=== PATIENT | male | born 1995 | race Caucasian/White ===

== ENCOUNTER → 2019-11-27 13:50 | Outpatient (BNVA) | payer MEDICAID, SELFPAY | PROVIDERS: Family Provider Internal Medicine; PCP Internal Medicine; Visit Provider Nurse Practitioner Psychiatric/Mental Health | DX: F63.81 Intermittent explosive disorder (principal); F41.1 Generalized anxiety disorder; F70 Mild intellectual disabilities; Z72.0 Tobacco use | CPT/HCPCS: 99213 ==

== ENCOUNTER → 2020-02-25 08:32 | Outpatient (BNVA) | payer MEDICAID, SELFPAY | PROVIDERS: Family Provider Internal Medicine; PCP Internal Medicine; Visit Provider Nurse Practitioner Psychiatric/Mental Health | DX: F63.81 Intermittent explosive disorder (principal); F41.1 Generalized anxiety disorder; F70 Mild intellectual disabilities; Z72.0 Tobacco use | CPT/HCPCS: 99213 ==

== ENCOUNTER → 2020-05-19 08:24 | Outpatient (BNVA) | payer MEDICAID, SELFPAY | PROVIDERS: Family Provider Internal Medicine; PCP Internal Medicine; Visit Provider Nurse Practitioner Psychiatric/Mental Health | DX: F63.81 Intermittent explosive disorder (principal); F41.1 Generalized anxiety disorder; F70 Mild intellectual disabilities; F17.220 Nicotine dependence, chewing tobacco, uncomplicated | CPT/HCPCS: 99214 ==

== ENCOUNTER → 2020-06-17 07:32 | Outpatient (BNVA) | payer MEDICAID, SELFPAY | PROVIDERS: Family Provider Internal Medicine; PCP Internal Medicine; Visit Provider Nurse Practitioner Psychiatric/Mental Health | DX: F63.81 Intermittent explosive disorder (principal); F41.1 Generalized anxiety disorder; F70 Mild intellectual disabilities; F17.220 Nicotine dependence, chewing tobacco, uncomplicated; F33.1 Major depressive disorder, recurrent, moderate | CPT/HCPCS: 99213 ==

== ENCOUNTER → 2020-10-05 08:05 | Outpatient (BNVA) | payer MEDICAID, SELFPAY | PROVIDERS: Family Provider Internal Medicine; PCP Internal Medicine; Visit Provider Nurse Practitioner Psychiatric/Mental Health | DX: F63.81 Intermittent explosive disorder (principal); F41.1 Generalized anxiety disorder; F70 Mild intellectual disabilities; F17.220 Nicotine dependence, chewing tobacco, uncomplicated | CPT/HCPCS: 99213 ==

== ENCOUNTER → 2020-12-28 09:29 | Outpatient (BNVA) | payer MEDICAID, SELFPAY | PROVIDERS: PCP Internal Medicine; Visit Provider Nurse Practitioner Psychiatric/Mental Health | DX: F63.81 Intermittent explosive disorder (principal); F41.1 Generalized anxiety disorder; F70 Mild intellectual disabilities; F17.220 Nicotine dependence, chewing tobacco, uncomplicated; F17.290 Nicotine dependence, other tobacco product, uncomplicated | CPT/HCPCS: 99214 ==

== ENCOUNTER → 2021-10-25 15:04 | Outpatient (BNVA) | payer MEDICAID, SELFPAY | PROVIDERS: PCP Internal Medicine; Visit Provider Nurse Practitioner Psychiatric/Mental Health | DX: F63.81 Intermittent explosive disorder (principal); F41.1 Generalized anxiety disorder; F70 Mild intellectual disabilities; F17.220 Nicotine dependence, chewing tobacco, uncomplicated; F17.290 Nicotine dependence, other tobacco product, uncomplicated | CPT/HCPCS: 99214 ==